=== PATIENT | male | born 1980 | race Two or more races ===

== ENCOUNTER 2016-10-18 17:16 | Inpatient (IN) | payer SELFPAY ==
[~2016-10-18] VITALS: Ht 162.6 cm; Wt 82.8 kg
[2016-10-18] MEDS ORDERED: SODIUM CHLORIDE 0.9% 1,000ML IVBOLUS ONE (17:30)
[2016-10-18] MEDS ORDERED: SODIUM CHLORIDE FLUSH 10ML SYR IVF ONE (17:30)
[2016-10-18 17:59] LABS: PH, VENOUS 7.409 pH (7.320-7.420)
[2016-10-18 18:22] LABS: DIFF TOTAL CELLS COUNTED 100 CELL DIFF
[2016-10-18 18:24] LABS: VERIFY COUNTS? YES
[2016-10-18] MEDS ORDERED: INSULIN REGULAR 100 UNITS/ML, 3ML VIAL IVPush ONE ×2 (18:30→19:30)
[2016-10-18] MEDS ORDERED: SODIUM CHLORIDE 0.9%, 500ML IVBOLUS ONE (18:30)
[2016-10-18 19:05] LABS: BLOOD UREA NITROGEN 9 mg/dL (7-18)
[2016-10-18 19:08] LABS: ASPARTATE AMINO TRANSFERASE 56 U/L (15-37)
[2016-10-18] MEDS ORDERED: DIAZEPAM 5 MG/ML, 2ML ONE (19:25)
[2016-10-18] MEDS ORDERED: INSULIN REGULAR 100 UNITS/ML, 3ML VIAL ONE ×2 (19:26→19:40)
[2016-10-18] MEDS ORDERED: INSULIN REGULAR 100 UNITS/ML, 3ML VIAL SQ-INSULIN ONE (19:30)
[2016-10-18] MEDS ORDERED: DIAZEPAM 5 MG/ML, 2ML IVPush ONE (19:30)
[2016-10-18] MEDS ORDERED: SODIUM CHLORIDE 0.9% 1,000 ML IV SCH (19:57)
[2016-10-18] MEDS ORDERED: ZOLPIDEM 5MG TABLET PO PRN (20:00)
[2016-10-18] MEDS ORDERED: ACETAMINOPHEN 325 MG TABLET PO PRN (20:00)
[2016-10-18] MEDS ORDERED: GLUCAGON 1 MG IM PRN (20:00)
[2016-10-18] MEDS ORDERED: ONDANSETRON 2MG/ML, 2ML IVPush PRN (20:00)
[2016-10-18] MEDS: INSULIN ASPART 100 UNITS/ML, PEN SQ-INSULIN SCH (20:00)
[2016-10-18] MEDS ORDERED: DEXTROSE 4 GM TAB.CHEW PO PRN (20:00)
[2016-10-18] MEDS ORDERED: DEXTROSE 50%, 50ML SYRINGE IVPush PRN (20:00)
[2016-10-18 22:32] LABS: BLOOD UREA NITROGEN 6 mg/dL (7-18)
[2016-10-18] MEDS: SODIUM CHLORIDE FLUSH 10ML SYR IVF SCH (22:35)
[2016-10-18] MEDS: INSULIN DETEMIR 100 UNITS/ML, PEN SQ-INSULIN SCH (22:35)
[2016-10-18] MEDS: ENOXAPARIN 40 MG/0.4 ML SQ SCH (22:35)
[2016-10-18 22:44] VITALS: BP 138/76
[2016-10-19] MEDS: INSULIN ASPART 100 UNITS/ML, PEN SQ-INSULIN SCH ×6 (00:32→21:34)
[2016-10-19] MEDS ORDERED: POTASSIUM CHLORIDE 20 MEQ TAB.ER.PRT PO ONE ×2 (01:00→08:00)
[2016-10-19 02:35] VITALS: BP 128/74
[2016-10-19 05:46] LABS: BLOOD UREA NITROGEN 8 mg/dL (7-18)
[2016-10-19 07:39] VITALS: BP 105/62
[2016-10-19] MEDS: SODIUM CHLORIDE FLUSH 10ML SYR IVF SCH ×2 (08:21→21:34)
[2016-10-19] MEDS: INSULIN DETEMIR 100 UNITS/ML, PEN SQ-INSULIN SCH ×2 (08:21→17:17)
[2016-10-19 12:24] VITALS: BP 115/69
[2016-10-19] MEDS: GEMFIBROZIL 600 MG TABLET PO SCH ×2 (12:45→21:34)
[2016-10-19 19:37] VITALS: BP 113/69
[2016-10-19] MEDS ORDERED: POTASSIUM CHLORIDE 20 MEQ in SODIUM CHLORIDE 0.9% 1,000 ML IV SCH (19:57)
[2016-10-19] MEDS: ENOXAPARIN 40 MG/0.4 ML SQ SCH (21:34)
[2016-10-20 01:25] VITALS: BP 104/65
[2016-10-20] MEDS: POTASSIUM CHLORIDE 20 MEQ in SODIUM CHLORIDE 0.9% 1,000 ML IV SCH ×2 (02:13→10:30)
[2016-10-20 05:43] LABS: BLOOD UREA NITROGEN 9 mg/dL (7-18)
[2016-10-20 05:48] LABS: ASPARTATE AMINO TRANSFERASE 36 U/L (15-37)
[2016-10-20 08:01] VITALS: BP 124/72
[2016-10-20] MEDS: metFORMIN 500 MG TABLET PO SCH ×2 (08:50→17:16)
[2016-10-20] MEDS: POTASSIUM CHLORIDE 20 MEQ TAB.ER.PRT PO SCH ×2 (08:51→17:15)
[2016-10-20] MEDS: INSULIN ASPART 100 UNITS/ML, PEN SQ-INSULIN SCH ×4 (08:53→22:06)
[2016-10-20] MEDS: INSULIN DETEMIR 100 UNITS/ML, PEN SQ-INSULIN SCH ×2 (08:53→17:16)
[2016-10-20] MEDS: GEMFIBROZIL 600 MG TABLET PO SCH ×2 (10:30→22:06)
[2016-10-20] MEDS: SODIUM CHLORIDE FLUSH 10ML SYR IVF SCH ×2 (10:30→22:06)
[2016-10-20 15:00] VITALS: BP 118/70
[2016-10-20 20:13] VITALS: BP 100/60
[2016-10-20] MEDS: ENOXAPARIN 40 MG/0.4 ML SQ SCH (22:06)
[2016-10-21 00:12] VITALS: BP 101/60
[2016-10-21 06:02] LABS: BLOOD UREA NITROGEN 8 mg/dL (7-18)
[2016-10-21 07:51] VITALS: BP 104/64
[2016-10-21] MEDS: GEMFIBROZIL 600 MG TABLET PO SCH ×2 (08:35→20:17)
[2016-10-21] MEDS: metFORMIN 500 MG TABLET PO SCH ×2 (08:35→17:26)
[2016-10-21] MEDS: SODIUM CHLORIDE FLUSH 10ML SYR IVF SCH ×2 (08:36→20:18)
[2016-10-21] MEDS: INSULIN ASPART 100 UNITS/ML, PEN SQ-INSULIN SCH ×4 (08:37→20:18)
[2016-10-21 14:51] VITALS: BP 109/70
[2016-10-21] MEDS: INSULIN DETEMIR 100 UNITS/ML, PEN SQ-INSULIN SCH (17:28)
[2016-10-21 18:28] VITALS: BP 116/70
[2016-10-21] MEDS: ENOXAPARIN 40 MG/0.4 ML SQ SCH (20:17)
[2016-10-22 00:33] VITALS: BP 106/67
[2016-10-22 08:30] VITALS: BP 103/64
[2016-10-22] MEDS: GEMFIBROZIL 600 MG TABLET PO SCH ×2 (08:38→20:32)
[2016-10-22] MEDS: metFORMIN 500 MG TABLET PO SCH ×2 (08:38→17:45)
[2016-10-22] MEDS: INSULIN ASPART 100 UNITS/ML, PEN SQ-INSULIN SCH ×4 (08:40→20:33)
[2016-10-22] MEDS: SODIUM CHLORIDE FLUSH 10ML SYR IVF SCH ×2 (08:41→20:32)
[2016-10-22] MEDS: INSULIN DETEMIR 100 UNITS/ML, PEN SQ-INSULIN SCH ×2 (08:41→17:46)
[2016-10-22 14:30] VITALS: BP 101/60
[2016-10-22 19:36] VITALS: BP 118/73
[2016-10-22] MEDS: ENOXAPARIN 40 MG/0.4 ML SQ SCH (20:32)
[2016-10-23 01:38] VITALS: BP 121/70
[2016-10-23] MEDS: GEMFIBROZIL 600 MG TABLET PO SCH ×2 (08:38→21:03)
[2016-10-23] MEDS: metFORMIN 500 MG TABLET PO SCH ×2 (08:38→17:53)
[2016-10-23] MEDS: SODIUM CHLORIDE FLUSH 10ML SYR IVF SCH ×2 (08:39→21:03)
[2016-10-23] MEDS: INSULIN ASPART 100 UNITS/ML, PEN SQ-INSULIN SCH ×4 (08:39→21:04)
[2016-10-23] MEDS: INSULIN DETEMIR 100 UNITS/ML, PEN SQ-INSULIN SCH ×2 (08:39→17:54)
[2016-10-23 08:49] VITALS: BP 111/70
[2016-10-23 14:30] VITALS: BP 104/66
[2016-10-23 20:27] VITALS: BP 126/79
[2016-10-23] MEDS: ENOXAPARIN 40 MG/0.4 ML SQ SCH (21:00)
[2016-10-24 01:56] VITALS: BP 112/67
[2016-10-24 07:02] VITALS: BP 104/61
[2016-10-24] MEDS: INSULIN ASPART 100 UNITS/ML, PEN SQ-INSULIN SCH ×3 (08:33→21:02)
[2016-10-24] MEDS: metFORMIN 500 MG TABLET PO SCH ×2 (08:33→17:21)
[2016-10-24] MEDS: INSULIN DETEMIR 100 UNITS/ML, PEN SQ-INSULIN SCH ×2 (08:34→17:21)
[2016-10-24] MEDS: GEMFIBROZIL 600 MG TABLET PO SCH ×2 (08:37→21:01)
[2016-10-24] MEDS: SODIUM CHLORIDE FLUSH 10ML SYR IVF SCH ×2 (08:38→20:53)
[2016-10-24 12:00] VITALS: BP_SYST 113; BP_SYST 142; BP_DIAS 73; BP_DIAS 80
[2016-10-24] MEDS ORDERED: ZOLPIDEM 5MG TABLET PO PRN (16:30)
[2016-10-24] MEDS ORDERED: DEXTROSE 50%, 50ML SYRINGE IVPush PRN (16:30)
[2016-10-24] MEDS ORDERED: ACETAMINOPHEN 325 MG TABLET PO PRN (16:30)
[2016-10-24] MEDS ORDERED: DEXTROSE 4 GM TAB.CHEW PO PRN (16:30)
[2016-10-24] MEDS ORDERED: GLUCAGON 1 MG IM PRN (16:30)
[2016-10-24] MEDS ORDERED: ONDANSETRON 2MG/ML, 2ML IVPush PRN (16:30)
[2016-10-24 20:00] VITALS: BP 119/72
[2016-10-24] MEDS: ENOXAPARIN 40 MG/0.4 ML SQ SCH (20:53)
[2016-10-25 02:00] VITALS: BP 106/65
[2016-10-25 06:46] VITALS: BP 101/63
[2016-10-25] MEDS: metFORMIN 500 MG TABLET PO SCH (08:05)
[2016-10-25] MEDS: INSULIN DETEMIR 100 UNITS/ML, PEN SQ-INSULIN SCH (08:05)
[2016-10-25] MEDS: GEMFIBROZIL 600 MG TABLET PO SCH (08:05)
[2016-10-25] MEDS: INSULIN ASPART 100 UNITS/ML, PEN SQ-INSULIN SCH (08:05)
[2016-10-25] MEDS: SODIUM CHLORIDE FLUSH 10ML SYR IVF SCH (09:00)
[2016-10-25] MEDS ORDERED: GEMF600T3 PO (09:09)
[2016-10-25] MEDS ORDERED: INSU100I18 SQ-INSULIN (09:09)
[2016-10-25] MEDS ORDERED: BLOO-1267 HOMEMISC (09:09)
[2016-10-25] MEDS ORDERED: METF500T PO (09:09)
[2016-10-25] MEDS ORDERED: INSU100I28 SQ-INSULIN (09:09)
== END 2016-10-25 12:13 | disposition home or self-care (01) | DRG 637 ==
LOC: ED 19:15 → EDIP 19:22 → SUATTDRO 19:46 → ED 20:04 → 4WST 20:47 → DCLOUNGE 10-25 11:45
DX: E11.65 Type 2 diabetes mellitus with hyperglycemia (principal); E11.00 Type 2 diabetes mellitus with hyperosmolarity without nonketotic hyperglycemic-hyperosmolar coma (NKHHC); N17.0 Acute kidney failure with tubular necrosis; E87.1 Hypo-osmolality and hyponatremia; E87.6 Hypokalemia; E78.5 Hyperlipidemia, unspecified; E78.1 Pure hyperglyceridemia; Z83.3 Family history of diabetes mellitus
CPT/HCPCS: 36415; 80048; 80053; 80061; 81003; 82010; 82803; 82947; 82962; 83036; 83735; 84443; 85025; 93005; 96361; 96372; 96374; 96375; J1650; J1815; J3360; J3480; J7030; J7040